=== PATIENT | female | born 1955 | race American Indian/Alaskan Native ===

== ENCOUNTER 2018-06-11 16:22 | Outpatient (CLI) | payer OTHER | END 2018-06-11 16:23 | disposition home or self-care (01) | LOC: C.LAB 16:22 ==

== ENCOUNTER 2018-06-18 12:40 | Outpatient (CLI) | payer OTHER | END 2018-06-18 12:41 | disposition home or self-care (01) | LOC: C.LAB 12:40 | DX: E78.9 Disorder of lipoprotein metabolism, unspecified (principal); E55.9 Vitamin D deficiency, unspecified; E79.0 Hyperuricemia without signs of inflammatory arthritis and tophaceous disease; R53.83 Other fatigue; R73.01 Impaired fasting glucose ==